=== PATIENT | female | born 1990 | race Caucasian/White ===

== ENCOUNTER 2025-01-12 08:50 | Day surgery (SDC) | payer BC ==
[~2025-01-12 08:50] MED LIST: Ondansetron 4 MG/2 ML SDV IVPUSH PRN; Sodium Chloride 0.9% 10 ML Syringe FLUSH PRN; Sodium Chloride 0.9% 10 ML Syringe FLUSH SCH; fentaNYL 100 MCG/2 ML SDV IVPUSH PRN
[2025-01-12] MEDS: Lactated Ringers 1,000 ML IV SCH (09:25)
[2025-01-12] MEDS ORDERED: Propofol 200 MG/20 ML SDV ONE ×2 (09:46→09:55)
== END 2025-01-12 11:04 | disposition home or self-care (01) ==
LOC: JD.SDS 08:50
PROVIDERS: ATTEND Surgery
DX: D12.4 Benign neoplasm of descending colon (principal); K21.9 Gastro-esophageal reflux disease without esophagitis; K92.1 Melena; Z79.899 Other long term (current) drug therapy; Z79.890 Hormone replacement therapy
CPT/HCPCS: 43239; 45380; J2003; J2704; J7120; 00813